=== PATIENT | female | born 1975 | race Caucasian/White ===

== ENCOUNTER 2023-12-06 09:58 | Outpatient (OUT) | payer OTHER, SELFPAY ==
--- NOTE | 2023-12-06 10:09 | ECG_ITS ---
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
--- NOTE | 2023-12-06 10:49 | PM.PRESUREVA ---
History of Present Illness History of Present Illness Chief complaint: right shoulder rotator cuff tear Narrative: Patient presents for preadmission testing. The patient states about 6-8 weeks ago she sustained a fall at home and injured her right shoulder and has had pain and limited range of motion ever since. She does take Advil from time to time to help with her symptoms, but she states she just generally tries not to do activities that aggravate the pain. She denies numbness, tingling, weakness, or any other complaints. Review of Systems ROS Narrative REVIEW OF SYSTEMS: Negative except as stated in HPI, ten or more systems reviewed. Constitutional: No fever , chills, weakness ENT: No sore throat or epistaxis Cardiovascular: No edema, chest pain, palpitations, or activity intolerance Respiratory: No shortness of breath, cough, or wheezing Gastrointestinal: No abdominal pain, constipation, diarrhea, or vomiting Genitourinary: No dysuria or hematuria Neurological: No numbness, tingling, weakness, or headache Psychiatric: No mood changes PFSH PFS Medical History (Updated 12/06/23 @ 10:36 by Yessy Lobo NP) Wears dentures ?Z97.2 - Presence of dental prosthetic device (complete) (partial) (ICD-10) Shoulder pain ?M25.519 - Pain in unspecified shoulder (ICD-10) Rotator cuff tear ?M75.100 - Unspecified rotator cuff tear or rupture of unspecified shoulder, not specified as traumatic (ICD-10) COVID-19 ?U07.1 - COVID-19 (ICD-10) Bronchitis ?J40 - Bronchitis, not specified as acute or chronic (ICD-10) Seasonal allergies ?J30.2 - Other seasonal allergic rhinitis (ICD-10) Asthma ?J45.909 - Unspecified asthma, uncomplicated (ICD-10) GERD (gastroesophageal reflux disease) ?K21.9 - Gastro-esophageal reflux disease without esophagitis (ICD-10) Hypertension ?I10 - Essential (primary) hypertension (ICD-10) Surgical History (Updated 12/06/23 @ 10:30 by Yessy Lobo NP) History of section ?Z98.891 - History of uterine scar from previous surgery (ICD-10) History of cholecystectomy ?Z90.49 - Acquired absence of other specified parts of digestive tract (ICD-10) Family History (Updated 12/06/23 @ 10:30 by Yessy Lobo NP) Other Delayed recovery from anesthesia Family history of diabetes mellitus Family history of hypertension Family history of kidney cancer Social History (Updated 12/06/23 @ 10:23 by Yessy Lobo NP) Within the past year, how often did you have a drink containing alcohol: never Score interpretation: A score less than 3 is consistent with normal alcohol consumption. 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 Highest level of school completed/degree received: high school graduate Meds Home Medications and Allergies Home Medications ?Medication ?Instructions ?Recorded ?Confirmed ?Type albuterol sulfate 90 mcg/actuation 2 puff inhalation Q6H PRN 12/06/23 12/06/23 History aerosol inhaler (Ventolin HFA) shortness of breath or wheezing cetirizine 10 mg tablet 10 mg PO DAILY 12/06/23 12/06/23 History famotidine 20 mg tablet 20 mg PO DAILY 12/06/23 12/06/23 History lisinopril 10 mg tablet 10 mg PO DAILY 12/06/23 12/06/23 History pantoprazole 40 mg tablet,delayed 40 mg PO DAILY 12/06/23 12/06/23 History release Allergies Allergy/AdvReac Type Severity Reaction Status Date / Time No Known Drug Allergies Allergy Verified 12/06/23 10:20 Exam Narrative Exam Narrative: Constitutional: Awake, alert, comfortable, well-appearing, nontoxic, interactive, vital signs as charted Head: Normocephalic, atraumatic Neck: Supple, normal appearance, normal range of motion, no meningeal signs, no lymphadenopathy Respiratory: No respiratory distress, breath sounds clear Cardiovascular: Regular rate and rhythm, strong and regular heart tones Musculoskeletal: Normal gait, no swelling or edema, Anterior right shoulder tenderness, range of motion limited due to pain Skin: No rashes or induration, no lesions, only visible skin inspected Neuro: No neurological deficits, normal sensation Psychiatric: Oriented ?3, normal affect Assessment and Plan Assessment and Plan (1) Shoulder pain: (2) Rotator cuff tear: Plan Right shoulder arthroscopic rotator cuff repair scheduled with Dr. Dunaway 12/18/2023.
[2023-12-06 10:57] LABS: Basophils Absolute Auto 0.1 10^3/uL (0.0-0.1); Basophils Percent Auto 0.4 % (0.2-2.0); Eosinophils Absolute Auto 0.1 10^3/uL (0.0-0.7); Eosinophils Percent Auto 0.9 % (0.9-7.0); Hematocrit 40.1 % (36.0-48.0); Hemoglobin 13.6 g/dL (12.0-16.0); Immature Granulocytes Abs Auto 0.04 10^3/uL (0.00-0.03); Immature Granulocytes Pct Auto 0.3 % (0.0-0.5); Lymphocytes Absolute Auto 2.9 10^3/uL (1.2-3.8); Lymphocytes Percent Auto 23.7 % (20.5-60.0); Mean Corpuscular HGB Conc 33.9 g/dL (29.9-35.2); Mean Corpuscular Volume 94.4 fL (81.0-99.0); Mean Platelet Volume 10.8 fL (9.5-13.5); Monocytes Absolute Auto 0.5 10^3/uL (0.3-0.8); Neutrophils Absolute Auto 8.5 10^3/uL (1.4-6.5); Neutrophils Percent Auto 70.7 % (43.0-75.0); Platelet Count 323 10^3/uL (150-450); Red Blood Count 4.25 10^6/uL (4.20-5.40); Red Cell Distribution Width 12.6 % (11.0-15.0); White Blood Count 12.1 10^3/uL (4.0-11.0)
[2023-12-06 11:16] LABS: Anion Gap 13.1; BUN Creatinine Ratio 16.7; Calcium 9.4 mg/dL (8.5-10.1); Chloride 103 mmol/L (98-107); Estimated GFR (African America >60 (>=60); Estimated GFR (Non-African Ame >60 (>=60); Glucose 109 mg/dL (74-106); Potassium 4.1 mmol/L (3.5-5.1); Sodium 139 mmol/L (136-145)
== END 2023-12-06 09:59 | disposition home or self-care (01) ==
LOC: PST 10:01
PROVIDERS: Visit Provider Orthopaedic Surgery
DX: Z01.810 Encounter for preprocedural cardiovascular examination (principal); Z01.812 Encounter for preprocedural laboratory examination; Z01.818 Encounter for other preprocedural examination; S46.011A Strain of muscle(s) and tendon(s) of the rotator cuff of right shoulder, initial encounter
CPT/HCPCS: 80048; 85025; 93005; G0463

== ENCOUNTER 2023-12-18 12:26 | Day surgery (SDC) | payer OTHER, SELFPAY ==
[2023-12-06 10:30] VITALS: BP 134/82; PULSE 74; TEMP 36.2; O2SAT 97; BMI 28.3
[2023-12-18] VITALS (11 sets, daily range): BP systolic 118–145; BP diastolic 74–99; PULSE 68–97; TEMP 36.2–36.3; O2SAT 94–98; BMI 28.1
[2023-12-18 12:45] LABS: Basophils Absolute Auto 0.1 10^3/uL (0.0-0.1); Basophils Percent Auto 0.5 % (0.2-2.0); Eosinophils Absolute Auto 0.1 10^3/uL (0.0-0.7); Eosinophils Percent Auto 1.1 % (0.9-7.0); Hematocrit 40.8 % (36.0-48.0); Hemoglobin 13.7 g/dL (12.0-16.0); Immature Granulocytes Abs Auto 0.01 10^3/uL (0.00-0.03); Immature Granulocytes Pct Auto 0.1 % (0.0-0.5); Lymphocytes Absolute Auto 2.6 10^3/uL (1.2-3.8); Lymphocytes Percent Auto 26.5 % (20.5-60.0); Mean Corpuscular HGB Conc 33.6 g/dL (29.9-35.2); Mean Corpuscular Hemoglobin 31.9 pg (26.7-34.0); Mean Corpuscular Volume 95.1 fL (81.0-99.0); Monocytes Absolute Auto 0.5 10^3/uL (0.3-0.8); Monocytes Percent Auto 5.3 % (1.7-12.0); Neutrophils Absolute Auto 6.4 10^3/uL (1.4-6.5); Neutrophils Percent Auto 66.5 % (43.0-75.0); Platelet Count 315 10^3/uL (150-450); Red Blood Count 4.29 10^6/uL (4.20-5.40); Red Cell Distribution Width 12.9 % (11.0-15.0); White Blood Count 9.6 10^3/uL (4.0-11.0)
[2023-12-18 12:58] LABS: HCG Qualitative NEGATIVE (NEGATIVE)
[2023-12-18] MEDS: LACTATED RINGER'S SOLUTION 1,000 ML 50 ML IV ×2 (13:14→15:31)
--- NOTE | 2023-12-18 14:02 | PC.NURSE ---
Patient was consented for a peripheral nerve block. Time out was performed per protocol. Patient placed on the monitors and O2. Bedside ultrasound was used to perform block. Block started at 1336 and was completed at 1345. Patient tolerated block well. Patient remains on monitor and O2 until she will be moved to the OR.
[2023-12-18] MEDS: CEFAZOLIN SODIUM/DEXTROSE,ISO 2 GM/50 ML PIGGYBACK IV (14:43)
[2023-12-18] MEDS: EPINEPHRINE HCL PF 1 MG/ML AMPULE 3 MG IO (15:54)
[2023-12-18] MEDS: BUPIVACAINE HCL 0.5% PF 50 MG/10 ML VIAL 20 ML INJ (16:07)
--- NOTE | 2023-12-18 16:42 | PM.ORPRC ---
Procedure Note Date of procedure: 12/18/23 Pre-op diagnosis: 1. Right shoulder rotator cuff tear Post-op diagnosis: other (1. Right shoulder rotator cuff tear 2. Biceps tendon tear) Procedure: Operation: 1. Right shoulder arthroscopic rotator cuff repair 2. Right shoulder distal clavicle excision Operative procedure: After informed consent was obtained the patient was brought to the operating room where a general anesthetic was administered. Preoperatively regional block was placed. The patient was placed in the beachchair position. Exam under anesthesia of the right shoulder revealed full range of motion and no instability. The right shoulder was prepped and draped in the usual sterile fashion. Diagnostic arthroscopy was performed the standard anterior, posterior, and lateral arthroscopy portals. Findings included partial-thickness tearing of the biceps tendon within the intertubercular portion. Labrum was intact circumferentially. Articular cartilage was intact. Subscapularis was intact. Supraspinatus tendon had a full-thickness nonretracted tear. Infraspinatus was intact. Axillary recess did not have any loose bodies. The biceps was tenotomized for later tenodesis. Arthroscope was introduced in the subacromial space and there was mild bursal inflammation which was removed the arthroscopic shaver. The torn edge of the rotator cuff was debrided down to more healthy tissue. Greater tuberosity was debrided down to bleeding bed of bone. 1 Arthrex suture tape and 1 Arthrex fiber tape were placed in an inverted horizontal mattress fashion in the torn supraspinatus tendon. These were then secured to the greater tuberosity with 1 Arthrex 4.75 bio composite swivel lock. Solid fixation was achieved. Shoulder was drained of arthroscopy fluid and portals were closed with a nylon suture. Attention was next turned to the biceps tenodesis. A 3 cm incision was made in the pre-existing longitudinal arm crease just distal to the pectoralis. Blunt dissection was carried down for a subpectoralis approach to the tenotomized biceps tendon which was next externalized. A #2 FiberWire was placed in a running locking fashion at the muscle tendon junction extending for 2 cm. Remaining tendon was removed and then sized to 5 mm. The 2 suture ends were then placed through an Arthrex biceps button. The guidepin was placed in a bicortical fashion at the appropriate position in the bicipital groove. Unicortical 5 mm drill hole was created over the top of this. The button was next passed the far cortex and flipped. Sutures were pulled pulling the tendon into the tunnel that was created. Sutures were then tied resulting in a nice repair of the biceps tendon. Wound was irrigated and closed with absorbable suture in layers. 20 mL 0.5% Marcaine plain was infiltrated. Steri-Strips and a sterile dressing were placed. UltraSling was placed. Patient was awakened and brought to the recovery room in stable condition. There were no intraoperative or immediate postoperative complications. Anesthesia: GETA and regional Surgeon: Charles Dunaway Estimated blood loss (mL): 10 Pathology: none sent Condition: stable Disposition: PACU
== END 2023-12-18 17:40 | disposition home or self-care (01) ==
PROVIDERS: Anesthesiology; Visit Provider Orthopaedic Surgery
PROC: (CPT 1630; principal; 2023-12-18 14:00)
DX: S46.011A Strain of muscle(s) and tendon(s) of the rotator cuff of right shoulder, initial encounter (principal); S46.211A Strain of muscle, fascia and tendon of other parts of biceps, right arm, initial encounter; W19.XXXA Unspecified fall, initial encounter; Z86.16 Personal history of COVID-19; Z90.49 Acquired absence of other specified parts of digestive tract; F17.210 Nicotine dependence, cigarettes, uncomplicated
CPT/HCPCS: 23430; 29827; 36415; 64415; 84703; 85025; C1713; J1094; J2704

== ENCOUNTER 2024-01-15 16:44 | Outpatient (RCR) | payer OTHER, SELFPAY | END 2024-04-04 09:35 | disposition home or self-care (01) | LOC: PT 16:44 | PROVIDERS: Visit Provider Orthopaedic Surgery | DX: S46.111D Strain of muscle, fascia and tendon of long head of biceps, right arm, subsequent encounter (principal); S46.011D Strain of muscle(s) and tendon(s) of the rotator cuff of right shoulder, subsequent encounter | CPT/HCPCS: 97110; 97112; 97140; 97161 ==